=== PATIENT | male | born 1960 | race Caucasian/White ===

== ENCOUNTER 2025-02-09 15:11 | Emergency (ER) | payer OTHER, SELFPAY ==
[2025-02-09 15:14] VITALS: BP 154/73
[2025-02-09 16:09] VITALS: BMI 26.2
--- NOTE | 2025-02-09 16:40 | ED.GENMED ---
History of Present Illness
General
Chief Complaint: Skin Problem
Source: patient
Time Seen by Provider: 02/09/25 16:14
History of Present Illness
History of Present Illness:
64-year-old male with past medical history of CAD and hypertension presenting to the emergency department for evaluation after he sustained laceration to the left dorsal part of his thumb while working on his garage at home. Patient presents to
urgent care initially but was told that he needed to come to the ER due to the depth of the laceration. Patient is right-hand dominant. Tetanus is up-to-date and no other injuries were sustained. He states he still has full range of motion of the
thumb and no sensory abnormalities
Past History
Past History
ED Past Medical History: CAD and HTN
ED Past Surgical History: Cardiac
Social History
Tobacco: Non-smoker
Alcohol: Occasional
Drug: None
Personal: Other ()
Living: with family
Employment: Employed
Review of Systems
Review of Systems
All Other Systems: ROS reviewed and negative except as documented in HPI and ROS
Phy Exam
Physical Exam
Physical Exam:
AAO times three, in nad.
Extrem: hand/wrist/fingers held in normal resting position, 2 cm laceration, partial thickness at the level of the MCP joint of the left thumb. Patient has full range of motion of the left thumb including opposition. Sensation grossly intact and
equal to light touch throughout
Flexor Tendons-Full active/passive ROM, nl flexion of all superficialis/profundus tendons against resistance
Extensor Tendons-Full active/passive ROM, and nl extension of all fingers against resistance
No FB seen on exam (s/p anesthesia)
Normal light tough/sharp/two point discrimination in all fingers
Pt denies sensation/concern for fracture, foreign body, excessive debris, numbness/tingling of fingers, weakness of fingers, of difficulty in moving any joint.
Scores
Heart Failure Risk
Heart Failure Risk Score: Not Applicable
Heart Score for Chest Pain Patients
STEMI patient?: Not applicable
Withdrawal Assessment of Alcohol
Withdrawal Assessment Completed?: Not applicable
Course
Vital Signs
Initial and Last Documented VS:
Initial Vital Signs
Temp Pulse Resp BP Pulse Ox
98.6 F 54 16 154/73 99
02/09/25 15:14 02/09/25 15:14 02/09/25 15:14 02/09/25 15:14 02/09/25 15:14
Last Documented Vital Signs
Temp Pulse Resp BP Pulse Ox
98.6 F 54 16 154/73 99
02/09/25 15:14 02/09/25 15:14 02/09/25 15:14 02/09/25 15:14 02/09/25 15:14
Procedures
Laceration Closure
Left Dorsal Thumb:
Status of Wound: clean
Size of Wound in cm: 2
Description of Wound Edges: sharp
Preparation: cleaned with saline
Anesthesia: 1% Lidocaine
Revision/Debridement: routine- no revision
Wound exploration: no tendon involvement
Type of Closure: layered closure
Skin Closure Material: 5-0 nylon (10) and 5-0 vicryl (3)
Number of sutures: 13
MDM/Problems Addressed
Differential Diagnosis Includes:
Full-thickness laceration, based off physical exam I do not have concern for tendon or nerve laceration, no concern for fracture
MDM/Problems Addressed:
64-year-old male presenting to the ER for evaluation of laceration sustained to the dorsal aspect of the left thumb at the MCP joint. Patient has full range of motion and normal sensation throughout the extremity. Laceration repaired as above.
Suture removal 10 to 12 days. Patient advised on wound care. Stable for discharge home.
*Pulse Oximetry
Patient hypoxic: no
*Critical Care Note
Total Time (30-74mins, 75-104mins- exclusive of procedures): Not Applicable
ED Attending Note
-
Portions of this chart may have been created with voice recognition software.� Occasional wrong word or��sound alike� substitutions may have occurred due to the inherent limitations of voice recognition software.
Discharge Plan
Departure
Patient Disposition: Home (Routine Discharge)
Date of Disposition: 02/09/25
Time of Disposition: 16:40
Patient with high blood pressure during this ER visit?: Yes
Discharge Problem:
Laceration of left thumb
Instructions: Stitches - ED discharge instructions
Referrals:
Donavan Alanis DO [Family Provider, Family Practice]
Activity Restrictions/Additional Instructions:
Suture removal in 10-12 days
Interventions
Interventions:
*Risk Screen - Suicide Last Done: 02/09/25 15:14
*General Assessment Last Done: 02/09/25 16:09
*Neglect/Abuse Screening Last Done: 02/09/25 15:14
*ED COVID-19 Vaccine History Last Done: 02/09/25 16:09
*Nursing Disposition Last Done: 02/09/25 16:48
ED-Skin Assessment Last Done: 02/09/25 16:09
Discharge Date and Time
Discharge Date/Time: 02/09/25 16:58
Print Language: WELSH
== END 2025-02-09 16:58 | disposition home or self-care (01) ==
LOC: EMR 15:11
PROVIDERS: EMERGENCY PHYSICIAN Emergency Medicine; FAMILY PHYSICIAN Family Medicine
DX: S61.012A Laceration without foreign body of left thumb without damage to nail, initial encounter (principal); W26.8XXA Contact with other sharp object(s), not elsewhere classified, initial encounter; I25.10 Atherosclerotic heart disease of native coronary artery without angina pectoris; I10 Essential (primary) hypertension
CPT/HCPCS: 99282; 12001